=== PATIENT | male | born 1980 | race Two or more races ===

== ENCOUNTER 2019-06-09 23:11 | Emergency (ER) | payer MEDICARE, MEDICAID ==
[~2019-06-09] VITALS: Ht 162.6 cm; Wt 86.2 kg
[2019-06-10 01:21] VITALS: BP 126/77
== END 2019-06-10 01:47 | disposition home or self-care (01) ==
LOC: ER 23:11
DX: M54.41 Lumbago with sciatica, right side (principal); M62.830 Muscle spasm of back
CPT/HCPCS: 72131

== ENCOUNTER 2020-05-06 18:59 | Emergency (ER) | payer OTHER, MEDICAID ==
[~2020-05-06] VITALS: Ht 172.7 cm; Wt 77.1 kg
[2020-05-06] MEDS ORDERED: PANTOPRAZOLE 40 MG TAB PO ONE (19:45)
[2020-05-06 20:18] VITALS: BP 141/82
[2020-05-06 22:10] LABS: Basophils # (auto) 0 10 ^3/uL (0-0.2); Eosinophils # (auto) 0 10 ^3/uL (0-0.8); Hematocrit 47.8 % (41.0-53.0); Hemoglobin 16.9 g/dL (13.5-17.5); Lymphocytes # (auto) 1.5 10 ^3/uL (0.4-5.4); Lymphocytes % (auto) 16.9 % (10.0-50.0); Mean Corpuscular Hemoglobin 30.2 pg (28.0-32.0); Mean Corpuscular Hgb Conc. 35.4 g/dL (32.0-36.0); Mean Corpuscular Volume 85.2 fL (80.0-100.0); Monocytes # (auto) 0.7 10 ^3/uL (0-1.3); Monocytes % (auto) 7.7 % (0.0-12.0); Neutrophils # (auto) 6.6 10 ^3/uL (1.6-8.6); Neutrophils % (auto) 75.4 % (37.0-80.0); Nucleated Red Blood Cells % 0.1 %; Platelet Count (auto) 324 10^3/uL (140-450); Red Blood Cells 5.61 10^6/uL (4.5-5.90); White Blood Cell 8.7 10^3/uL (4.4-10.8)
[2020-05-06 22:32] LABS: Albumin 4.2 g/dL (3.4-5.0); Anion Gap 6 (5-15); Blood Urea Nitrogen 13 mg/dL (7-18); Calcium 8.7 mg/dL (8.5-10.1); Carbon Dioxide 28 mmol/L (21-32); Chloride 106 mmol/L (98-107); Glucose 98 mg/dL (74-106); Potassium 3.8 mmol/L (3.5-5.1); Sodium 140 mmol/L (136-145)
[2020-05-06 22:37] LABS: Alanine Aminotransferase 22 U/L (16-61); Alkaline Phosphatase 110 U/L (45-117); Aspartate Aminotransferase 17 U/L (15-37); BUN/Creatinine Ratio 14.3; Bilirubin, Total 0.6 mg/dL (0.2-1.0); GFR African American 118 mL/min; GFR Non-African American 98 mL/min; Total Protein 8.9 g/dL (6.4-8.2)
== END 2020-05-06 23:02 | disposition home or self-care (01) ==
LOC: ER 18:59
DX: U07.1 COVID-19 (principal); K21.9 Gastro-esophageal reflux disease without esophagitis
CPT/HCPCS: 36415; 80053; 84484; 85025

== ENCOUNTER 2020-05-14 21:41 | Emergency (ER) | payer OTHER, MEDICAID ==
[~2020-05-14] VITALS: Ht 167.6 cm; Wt 78.0 kg
[2020-05-14 21:47] VITALS: BP 122/83
[2020-05-15] MEDS ORDERED: PANTOPRAZOLE 40 MG TAB PO ONE (01:00)
[2020-05-15] MEDS ORDERED: ACETAMINOPHEN 500 MG TAB PO ONE (01:00)
== END 2020-05-15 01:52 | disposition home or self-care (01) ==
LOC: ER 21:41
DX: K21.9 Gastro-esophageal reflux disease without esophagitis (principal); M54.2 Cervicalgia; J35.1 Hypertrophy of tonsils; T78.1XXA Other adverse food reactions, not elsewhere classified, initial encounter; X58.XXXA Exposure to other specified factors, initial encounter

== ENCOUNTER 2020-09-04 02:17 | Emergency (ER) | payer OTHER, MEDICAID ==
[~2020-09-04] VITALS: Ht 165.1 cm; Wt 72.6 kg
[2020-09-04 03:36] LABS: Basophils # (auto) 0.1 10 ^3/uL (0-0.2); Basophils % (auto) 0.6 % (0.0-2.0); Eosinophils # (auto) 0 10 ^3/uL (0-0.8); Eosinophils % (auto) 0.3 % (0.0-7.0); Hematocrit 47.5 % (41.0-53.0); Hemoglobin 16.7 g/dL (13.5-17.5); Lymphocytes # (auto) 0.6 10 ^3/uL (0.4-5.4); Lymphocytes % (auto) 6.9 % (10.0-50.0); Mean Corpuscular Hemoglobin 30.4 pg (28.0-32.0); Mean Corpuscular Hgb Conc. 35.1 g/dL (32.0-36.0); Mean Corpuscular Volume 86.6 fL (80.0-100.0); Monocytes # (auto) 0.5 10 ^3/uL (0-1.3); Monocytes % (auto) 5.2 % (0.0-12.0); Neutrophils # (auto) 8.1 10 ^3/uL (1.6-8.6); Platelet Count (auto) 254 10^3/uL (140-450); Red Blood Cells 5.49 10^6/uL (4.5-5.90); Red Cell Distribution Width 13.8 % (11.8-14.3); White Blood Cell 9.3 10^3/uL (4.4-10.8)
[2020-09-04 03:44] LABS: Albumin 4.1 g/dL (3.4-5.0); Calcium 8.3 mg/dL (8.5-10.1); Magnesium 2.1 mg/dL (1.6-2.6); Potassium 3.7 mmol/L (3.5-5.1)
[2020-09-04 03:48] LABS: BUN/Creatinine Ratio 11.9; Bilirubin, Total 0.5 mg/dL (0.2-1.0); Total Protein 8.6 g/dL (6.4-8.2)
[2020-09-04] MEDS ORDERED: ACETAMINOPHEN 325 MG TAB PO ONE (04:00)
[2020-09-04] MEDS ORDERED: ONDANSETRON HCL 4 MG/2 ML VIAL IV ONE (04:00)
[2020-09-04] MEDS ORDERED: SODIUM CHLORIDE 0.9% 1,000 ML IVB ONE (08:00)
[2020-09-04 10:03] VITALS: BP 133/70
== END 2020-09-04 10:07 | disposition home or self-care (01) ==
LOC: ER 02:17
DX: K52.9 Noninfective gastroenteritis and colitis, unspecified (principal); T50.B95A Adverse effect of other viral vaccines, initial encounter; Y92.89 Other specified places as the place of occurrence of the external cause
CPT/HCPCS: 36415; 80053; 83690; 83735; 85025; 96361; 96374; 99285; J2405; J7030

== ENCOUNTER 2020-09-12 09:46 | Emergency (ER) | payer OTHER, MEDICAID ==
[~2020-09-12] VITALS: Ht 167.6 cm; Wt 84.4 kg
[2020-09-12 09:51] VITALS: BP 132/86
== END 2020-09-12 10:04 | disposition left against medical advice (07) ==
LOC: ER 09:46
DX: R10.9 Unspecified abdominal pain (principal); R11.0 Nausea; Z53.21 Procedure and treatment not carried out due to patient leaving prior to being seen by health care provider

== ENCOUNTER 2021-05-28 08:10 | Emergency (ER) | payer MEDICARE, MEDICAID ==
[~2021-05-28] VITALS: Ht 167.6 cm; Wt 86.2 kg
[2021-05-28 08:24] VITALS: BP 122/89
[2021-05-28] MEDS ORDERED: LIDO2SOL23 MT (08:45)
[2021-05-28] MEDS ORDERED: CLIN300C8 PO (08:45)
== END 2021-05-28 09:08 | disposition home or self-care (01) ==
LOC: ER 08:10
DX: S01.532A Puncture wound without foreign body of oral cavity, initial encounter (principal); Z79.2 Long term (current) use of antibiotics; Z79.899 Other long term (current) drug therapy; X58.XXXA Exposure to other specified factors, initial encounter; Y93.89 Activity, other specified; Y92.89 Other specified places as the place of occurrence of the external cause; Y99.8 Other external cause status

== ENCOUNTER 2022-12-25 16:52 | Emergency (ER) | payer MEDICARE, MEDICAID ==
[~2022-12-25] VITALS: Ht 167.6 cm; Wt 83.6 kg
[~2022-12-25 16:52] MED LIST: CLIN300C70 PO; LIDO2SOL26 MT
[2022-12-25 19:38] LABS: Basophils # (auto) 0.1 10 ^3/uL (0-0.2); Basophils % (auto) 0.7 % (0.0-2.0); Eosinophils # (auto) 0.1 10 ^3/uL (0-0.8); Eosinophils % (auto) 1.6 % (0.0-7.0); Hematocrit 46.5 % (41.0-53.0); Hemoglobin 15.7 g/dL (13.5-17.5); Lymphocytes # (auto) 2.6 10 ^3/uL (0.4-5.4); Lymphocytes % (auto) 29.6 % (10.0-50.0); Mean Corpuscular Hgb Conc. 33.8 g/dL (32.0-36.0); Mean Corpuscular Volume 85.8 fL (80.0-100.0); Monocytes # (auto) 0.6 10 ^3/uL (0-1.3); Monocytes % (auto) 6.6 % (0.0-12.0); Neutrophils # (auto) 5.4 10 ^3/uL (1.6-8.6); Neutrophils % (auto) 61.5 % (37.0-80.0); Nucleated Red Blood Cells % 0.1 %; Red Blood Cells 5.42 10^6/uL (4.5-5.90); Red Cell Distribution Width 14.4 % (11.8-14.3); White Blood Cell 8.8 10^3/uL (4.4-10.8)
[2022-12-25 19:53] LABS: Albumin 4.7 g/dL (3.2-4.8); Alkaline Phosphatase 106 U/L (46-116); BUN/Creatinine Ratio 9.4 (10.0-20.0); Bilirubin, Total 0.4 mg/dL (0.2-1.0); Blood Urea Nitrogen 9 mg/dL (9-23); Chloride 109 mmol/L (98-107); Glucose 95 mg/dL (74-106); Lipase 58 U/L (12-53); Potassium 4.2 mmol/L (3.5-5.1); Sodium 141 mmol/L (136-145); Total Protein 7.9 g/dL (5.7-8.2)
[2022-12-25 19:55] LABS: Calcium 9.2 mg/dL (8.7-10.4)
[2022-12-25 19:57] LABS: Alanine Aminotransferase < 9 U/L (7-40)
[2022-12-25 20:02] LABS: Aspartate Aminotransferase 12 U/L (13-40)
[2022-12-25] MEDS ORDERED: BACL10TA PO (20:25)
[2022-12-25 21:51] VITALS: BP 118/77; PULSE 60; RESP 18; TEMP 98.3
[2022-12-25 21:53] VITALS: O2SAT 98
== END 2022-12-25 22:00 | disposition home or self-care (01) ==
LOC: ER 16:52
DX: M54.6 Pain in thoracic spine (principal); F41.9 Anxiety disorder, unspecified; Z98.890 Other specified postprocedural states; Z79.899 Other long term (current) drug therapy
CPT/HCPCS: 36415; 71045; 80053; 83690; 85025; 85379

== ENCOUNTER 2023-09-16 18:46 | Emergency (ER) | payer MEDICARE, MEDICAID ==
[~2023-09-16] VITALS: Ht 167.6 cm; Wt 88.7 kg
[~2023-09-16 18:46] MED LIST changes: +BACL10TA PO; +CLIN1CAP70 PO; -CLIN300C70 PO
[2023-09-16 20:03] LABS: Basophils # (auto) 0.1 10 ^3/uL (0-0.2); Basophils % (auto) 0.8 % (0.0-2.0); Eosinophils # (auto) 0.2 10 ^3/uL (0-0.8); Hematocrit 45.1 % (41.0-53.0); Lymphocytes # (auto) 2.3 10 ^3/uL (0.4-5.4); Lymphocytes % (auto) 24.9 % (10.0-50.0); Mean Corpuscular Hemoglobin 29.3 pg (28.0-32.0); Mean Corpuscular Hgb Conc. 33.2 g/dL (32.0-36.0); Mean Corpuscular Volume 88.1 fL (80.0-100.0); Monocytes # (auto) 0.8 10 ^3/uL (0-1.3); Monocytes % (auto) 8.8 % (0.0-12.0); Neutrophils # (auto) 5.8 10 ^3/uL (1.6-8.6); Neutrophils % (auto) 63.5 % (37.0-80.0); Nucleated Red Blood Cells % 0.1 %; Red Blood Cells 5.13 10^6/uL (4.5-5.90); Red Cell Distribution Width 14.4 % (11.8-14.3); White Blood Cell 9.2 10^3/uL (4.4-10.8)
[2023-09-16 20:10] LABS: Chloride 108 mmol/L (98-107); Potassium 4.5 mmol/L (3.5-5.1); Sodium 141 mmol/L (136-145)
[2023-09-16 20:11] LABS: Anion Gap 3 (5-15); Calcium 9.6 mg/dL (8.7-10.4); Carbon Dioxide 30 mmol/L (20-30)
[2023-09-16 20:16] LABS: BUN/Creatinine Ratio 17.5 (10.0-20.0); Blood Urea Nitrogen 17 mg/dL (9-23); Glucose 95 mg/dL (74-106)
[2023-09-16 21:00] VITALS: BP 125/77; PULSE 13; RESP 13; TEMP 98.6; O2SAT 96
[2023-09-16] MEDS: ASPirin 81 mg TAB PO ONE (21:10)
== END 2023-09-16 21:17 | disposition home or self-care (01) ==
LOC: ER 18:46
DX: R07.89 Other chest pain (principal); M79.605 Pain in left leg; M79.604 Pain in right leg; F41.9 Anxiety disorder, unspecified; Z98.890 Other specified postprocedural states; Z87.891 Personal history of nicotine dependence; Z79.899 Other long term (current) drug therapy
CPT/HCPCS: 36415; 71046; 80048; 84484; 85025; 93005